=== PATIENT | female | born 1940 ===

== ENCOUNTER 2018-01-15 21:30 | Inpatient (IN) ==
[2018-01-15] MEDS ORDERED: Diphtheria/Tetanus/Pertussis Vaccine Inj 0.5 ML Syringe IM ONE (21:36)
[2018-01-15] MEDS ORDERED: Morphine Inj 4 MG/ML Vial ONE (21:40)
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
[2018-01-15 21:52] LABS: Baso # (Auto) 0.1 th/mm3 (0.0-0.2); Baso % (Auto) 0.6 % (0.0-2.0); Eos # (Auto) 0.1 th/mm3 (0.0-0.4); Eos % (Auto) 0.5 % (0.0-4.0); Hemoglobin 13.1 gm/dL (11.6-15.3); Lymph # (Auto) 2.6 th/mm3 (1.0-4.8); Lymph % (Auto) 21.9 % (9.0-44.0); Mean Corpuscular HGB Conc 33.6 % (32.0-36.0); Mean Corpuscular Hemoglobin 28.8 pg (27.0-34.0); Mean Corpuscular Volume 85.8 fL (80.0-100.0); Mean Platelet Volume 9.1 fL (7.0-11.0); Mono # (Auto) 0.4 th/mm3 (0.0-0.9); Mono % (Auto) 3.5 % (0.0-8.0); Neut # (Auto) 8.6 th/mm3 (1.8-7.7); Neut % (Auto) 73.5 % (16.0-70.0); Platelet Count 270 th/mm3 (150-450); Red Blood Count 4.55 mil/mm3 (4.00-5.30); Red Cell Distribution Width 14.7 % (11.6-17.2); White Blood Count 11.7 th/mm3 (4.0-11.0)
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
[2018-01-15 22:13] LABS: Activated Partial Thrombo Time 22.3 sec (24.3-30.1); Prothrombin Time 10.6 sec (9.8-11.6)
[2018-01-15] MEDS ORDERED: Bisacodyl 10 MG Supp RECTAL PRN (22:15)
[2018-01-15] MEDS ORDERED: Morphine Inj 4 MG/ML Vial IV.PUSH PRN (22:15)
[2018-01-15] MEDS ORDERED: Naloxone Inj 0.4 MG/ML Vial IV.PUSH PRN (22:15)
[2018-01-15] MEDS ORDERED: Post-op Orders (for Pharmacy) OTHER ONE (22:15)
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
[2018-01-16] MEDS: Sod Chloride 0.9% Inj 1,000 ML IV.CONT SCH ×3 (05:54→16:00)
[2018-01-16 07:26] LABS: Baso % (Auto) 0.4 % (0.0-2.0); Eos % (Auto) 0.2 % (0.0-4.0); Hematocrit 36.4 % (35.0-46.0); Hemoglobin 12.2 gm/dL (11.6-15.3); Lymph % (Auto) 11.2 % (9.0-44.0); Mean Corpuscular HGB Conc 33.7 % (32.0-36.0); Mean Corpuscular Hemoglobin 28.8 pg (27.0-34.0); Mean Corpuscular Volume 85.5 fL (80.0-100.0); Mono # (Auto) 0.5 th/mm3 (0.0-0.9); Mono % (Auto) 5.7 % (0.0-8.0); Neut # (Auto) 7.2 th/mm3 (1.8-7.7); Neut % (Auto) 82.5 % (16.0-70.0); Platelet Count 196 th/mm3 (150-450); Red Blood Count 4.25 mil/mm3 (4.00-5.30); Red Cell Distribution Width 14.6 % (11.6-17.2); White Blood Count 8.7 th/mm3 (4.0-11.0)
[2018-01-16] MEDS ORDERED: Dextrose 50% in Water 50 ML Vial IV.PUSH PRN (07:51)
[2018-01-16] MEDS: Metoprolol Tartrate 25 MG Tablet PO SCH ×2 (08:23→20:37)
[2018-01-16] MEDS: Famotidine 20 MG Tablet PO SCH ×2 (08:23→20:37)
[2018-01-16] MEDS: Senna/Docusate Sodium 8.6/50 MG Tablet PO SCH ×2 (08:23→20:37)
[2018-01-16] MEDS: Insulin NovoLOG Aspart Correctional Sugar Inj SQ SCH ×4 (09:23→20:38)
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
[2018-01-16] MEDS: Lidocaine 5% Patch T-DERMAL SCH (17:23)
--- NOTE | 2018-01-16 18:51 | P.DCO ---
- Physical Therapy Order: Evaluate and treat, Improve ambulation, Strength and gait training - Home Health Nursing Order: Medical education, Signs/symptoms of disease process, Medication education-adverse effect, Nursing assessment with vital signs - Case Management Consult Yes - Certification I have seen patient Erica Contreras on 01/16/18. My clinical findings support the need for the requested home health care services because: Limited mobility due to disease progression, Deconditioned with increased weakness, Limited ability to care for self, High risk of falls I certify that my clinical findings support that this patient is homebound because: Post-op weakness, Impaired cognitive ability/safety, Unsteady gait/balance, Unable to use public transportation
[2018-01-16] MEDS ORDERED: Metoprolol Tartrate 25 MG Tablet PO ONE (22:30)
[2018-01-17 04:44] LABS: Baso # (Auto) 0.1 th/mm3 (0.0-0.2); Baso % (Auto) 0.8 % (0.0-2.0); Eos # (Auto) 0.1 th/mm3 (0.0-0.4); Eos % (Auto) 1.3 % (0.0-4.0); Hematocrit 36.7 % (35.0-46.0); Hemoglobin 12.1 gm/dL (11.6-15.3); Lymph # (Auto) 1.6 th/mm3 (1.0-4.8); Lymph % (Auto) 21.4 % (9.0-44.0); Mean Corpuscular HGB Conc 32.9 % (32.0-36.0); Mean Corpuscular Hemoglobin 28.4 pg (27.0-34.0); Mean Corpuscular Volume 86.2 fL (80.0-100.0); Mean Platelet Volume 8.9 fL (7.0-11.0); Mono # (Auto) 0.4 th/mm3 (0.0-0.9); Neut # (Auto) 5.3 th/mm3 (1.8-7.7); Neut % (Auto) 70.5 % (16.0-70.0); Platelet Count 199 th/mm3 (150-450); Red Blood Count 4.26 mil/mm3 (4.00-5.30); Red Cell Distribution Width 14.8 % (11.6-17.2); White Blood Count 7.5 th/mm3 (4.0-11.0)
[2018-01-17 05:15] LABS: Calcium 7.7 mg/dL (8.5-10.1); Carbon Dioxide 29.2 meq/L (21.0-32.0)
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
[2018-01-17] MEDS: Metoprolol Tartrate 50 MG Tablet PO SCH ×2 (08:41→21:55)
[2018-01-17] MEDS: Senna/Docusate Sodium 8.6/50 MG Tablet PO SCH ×2 (08:42→21:56)
[2018-01-17] MEDS: Insulin NovoLOG Aspart Correctional Sugar Inj SQ SCH ×4 (08:43→21:56)
[2018-01-17] MEDS: Lidocaine 5% Patch T-DERMAL SCH (08:45)
[2018-01-17] MEDS: Famotidine 20 MG Tablet PO SCH ×2 (08:45→21:55)
[2018-01-17] MEDS: Sod Chloride 0.9% Inj 1,000 ML IV.CONT SCH (08:45)
[2018-01-17] MEDS: Glimepiride 4 MG Tablet PO SCH ×2 (09:16→21:55)
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
[2018-01-17] MEDS: Ibuprofen 600 MG Tablet PO PRN (13:18)
[2018-01-17] MEDS: Anastrozole 1 MG Tablet PO SCH (14:15)
[2018-01-18] MEDS: Sod Chloride 0.9% Inj 1,000 ML IV.CONT SCH ×2 (06:25→16:54)
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
[2018-01-18] MEDS: Metoprolol Tartrate 50 MG Tablet PO SCH ×3 (07:46→20:24)
[2018-01-18] MEDS: Anastrozole 1 MG Tablet PO SCH ×2 (07:47→08:46)
[2018-01-18] MEDS: Glimepiride 4 MG Tablet PO SCH ×3 (07:47→20:24)
[2018-01-18] MEDS: Senna/Docusate Sodium 8.6/50 MG Tablet PO SCH ×3 (07:47→20:25)
[2018-01-18] MEDS: Lidocaine 5% Patch T-DERMAL SCH ×2 (07:47→08:46)
[2018-01-18] MEDS: Famotidine 20 MG Tablet PO SCH ×3 (07:47→20:25)
[2018-01-18] MEDS: Insulin NovoLOG Aspart Correctional Sugar Inj SQ SCH ×4 (07:51→21:33)
[2018-01-18] MEDS: Ibuprofen 600 MG Tablet PO PRN (12:07)
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
[2018-01-19 01:02] VITALS: TEMP 98.1
[2018-01-19 07:49] VITALS: BP 135/63; PULSE 67; RESP 16; O2SAT 93
[2018-01-19] MEDS: Ibuprofen 600 MG Tablet PO PRN (07:55)
[2018-01-19] MEDS: Famotidine 20 MG Tablet PO SCH (07:59)
[2018-01-19] MEDS: Insulin NovoLOG Aspart Correctional Sugar Inj SQ SCH ×2 (08:00→12:40)
[2018-01-19] MEDS: Lidocaine 5% Patch T-DERMAL SCH (08:01)
[2018-01-19] MEDS: Senna/Docusate Sodium 8.6/50 MG Tablet PO SCH (08:01)
[2018-01-19] MEDS: Glimepiride 4 MG Tablet PO SCH (08:01)
[2018-01-19] MEDS: Anastrozole 1 MG Tablet PO SCH (08:01)
[2018-01-19] MEDS: Metoprolol Tartrate 50 MG Tablet PO SCH (08:01)
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
[2018-01-19] MEDS: Sod Chloride 0.9% Inj 1,000 ML IV.CONT SCH (12:40)
== END 2018-01-19 12:53 | disposition home health service (06) ==
LOC: NEPI 21:30 → NEDA 22:12 → EDBD 22:12 → MERGE 22:12 → N06 23:19 → UNDODISIN 01-17 13:07
PROVIDERS: ADMIT Surgery; ATTEND Surgery